=== PATIENT | female | born 1975 | race Caucasian/White ===

== ENCOUNTER 2017-12-08 11:13 | Observation (INO) | payer OTHER, MEDICAID ==
[~2017-12-08 11:13] MED LIST: CLINDAMYCIN 600 MG/D5W (PMX) 50 ML IVPB; LIDOCAINE 100 MG SYRINGE; METOCLOPRAMIDE 10 MG INJ; ONDANSETRON 4 MG INJ; SOD CHLORIDE 0.9% 1,000 ML IV
[2017-12-08 13:04] LABS: INR 1.29; PARTIAL THROMBOPLASTIN TIME 27.7 Sec (25.0-35.0); PROTIME 16.3 Sec (11.9-14.9); PT RATIO 1.3
[2017-12-08] MEDS ORDERED: BUPIVACAINE 0.25% (MPF) 30 ML INJ (13:11)
[2017-12-08] MEDS ORDERED: FENTAnyl 50 MCG/ML VIAL ×2 (13:23→13:42)
[2017-12-08] MEDS ORDERED: MIDAZOLAM 1 MG/ML 2 ML INJ ×2 (13:24→13:47)
[2017-12-08] MEDS ORDERED: PROPOFOL 20 ML (13:28)
[2017-12-08] MEDS ORDERED: SUCCINYLCHOLINE CHLORIDE 100 MG/5 ML SYG IV (13:28)
[2017-12-08] MEDS ORDERED: NEOSTIGMINE 3 MG/3 ML SYRINGE (13:28)
[2017-12-08] MEDS ORDERED: ROCURONIUM 50 MG INJ (13:28)
[2017-12-08] MEDS ORDERED: GLYCOPYRROLATE 0.4 MG INJ (13:28)
[2017-12-08] MEDS ORDERED: CLINDAMYCIN 600 MG/D5W (PMX) 50 ML IVPB (13:43)
[2017-12-08] MEDS ORDERED: ACETAMINOPHEN 1000MG/100ML IV 100 ML (13:45)
[2017-12-08] MEDS: POLYMYXIN/BACITRACIN 1L IRRIG IRR (14:12)
[2017-12-08] MEDS: BUPIVACAINE 0.25% (MPF) 30 ML INJ INJ (14:13)
[2017-12-08] MEDS ORDERED: PHENYLephrine (100 MCG/ML) 5ML SYG (14:19)
[2017-12-08] MEDS ORDERED: HYDROCORTISONE 100 MG INJ (14:20)
[2017-12-08] MEDS ORDERED: morphine 2 MG INJ IV (15:00)
[2017-12-08] MEDS: MEPERIDINE 25 MG INJ IV (15:15)
[2017-12-08] MEDS: HYDROmorphONE (0.2 MG/ML) 10ML SYG IV ×5 (15:15→15:58)
[2017-12-08] MEDS: ONDANSETRON 4 MG INJ IV (15:16)
[2017-12-08] MEDS ORDERED: LABETALOL HCL 20MG INJ IV (15:30)
[2017-12-08] MEDS ORDERED: FENTAnyl 50 MCG/ML VIAL IV ×2 (15:30)
[2017-12-08] MEDS ORDERED: hydrALAzine 20 MG INJ IV (15:30)
[2017-12-08] MEDS ORDERED: HYDROmorphONE (0.2 MG/ML) 10ML SYG IV (15:30)
[2017-12-08] MEDS ORDERED: LEVALBUTEROL (NEB) 0.63 MG/3 ML AMP HHN (15:30)
[2017-12-08] MEDS ORDERED: METOCLOPRAMIDE 10 MG INJ IV ×2 (15:30→17:30)
[2017-12-08] MEDS ORDERED: EPHEDrine SULFATE 50 MG/5 ML SYG IV (15:30)
[2017-12-08] MEDS ORDERED: DIPHENHYDRAMINE 50 MG INJ IV (15:30)
[2017-12-08 16:22] LABS: ADD MAN DIFF? NO
[2017-12-08 16:26] LABS: WHITE BLOOD COUNT 11.9 10^3/ul (4.8-10.8)
[2017-12-08 16:26] LABS: BASOPHIL # 0.1 10^3/ul (0.0-0.1); BASOPHILS % 0.4 % (0.0-2.0); EOSINOPHILS # 0.1 10^3/ul (0.0-0.5); EOSINOPHILS % 0.7 % (0.0-7.0); HEMATOCRIT 32.2 % (37.0-47.0); HEMOGLOBIN 10.2 g/dl (12.0-16.0); LYMPHOCYTES # 0.8 10^3/ul (0.8-2.9); LYMPHOCYTES % 6.6 % (15.0-51.0); MEAN CORPUSCULAR HEMOGLOBIN 27.9 pg (29.0-33.0); MEAN CORPUSCULAR HGB CONC 31.7 g/dl (32.0-37.0); MEAN CORPUSCULAR VOLUME 88.2 fl (82.0-101.0); MEAN PLATELET VOLUME 10.7 fl (7.4-10.4); MONOCYTE # 0.4 10^3/ul (0.3-0.9); MONOCYTES % 3.4 % (0.0-11.0); NEUTROPHIL # 10.5 10^3/ul (1.6-7.5); NEUTROPHILS % 88.4 % (39.0-77.0); PLATELET COUNT 253 10^3/UL (140-415); RED BLOOD COUNT 3.65 10^6/ul (4.20-5.40); RED CELL DISTRIBUTION WIDTH 15.3 % (11.5-14.5)
[2017-12-08 17:00] LABS: ALANINE AMINOTRANSFERASE 27 IU/L (13-69); ALBUMIN 2.9 g/dl (3.3-4.9); ALBUMIN/GLOBULIN RATIO 1.11; ALKALINE PHOSPHATASE 58 IU/L (42-121); ANION GAP 12 (8-16); ASPARTATE AMINO TRANSFERASE 17 IU/L (15-46); BILIRUBIN,INDIRECT 0.6 mg/dl (0-1.1); BILIRUBIN,TOTAL 0.6 mg/dl (0.2-1.3); CARBON DIOXIDE 23 mmol/L (21-31); CHLORIDE 108 mmol/L (97-110); GLUCOSE 148 mg/dl (70-220); TOTAL PROTEIN 5.5 g/dl (6.1-8.1)
[2017-12-08 17:16] LABS: SODIUM 140 mmol/L (135-144)
[2017-12-08 17:22] LABS: BLOOD UREA NITROGEN 24 mg/dl (7-20); CALCIUM 7.3 mg/dl (8.4-10.2); CREATININE 1.14 mg/dl (0.44-1.00)
[2017-12-08] MEDS ORDERED: ONDANSETRON 4 MG INJ IV (17:30)
[2017-12-08] MEDS: CLINDAMYCIN 600 MG/D5W (PMX) 50 ML IVPB (18:03)
[2017-12-08] MEDS: POTASSIUM CHLORIDE 40 MEQ in DEXTROSE 5% 250 ML IVPB (19:24)
[2017-12-08] MEDS: FAMOTIDINE 20 MG INJ IV (21:46)
[2017-12-08] MEDS: LACTATED RINGER'S 1,000 ML IV (21:50)
[2017-12-08] MEDS: HYDROCODONE/APAP (5/325) TAB PO (21:51)
[2017-12-09] MEDS: CLINDAMYCIN 600 MG/D5W (PMX) 50 ML IVPB ×3 (00:09→11:57)
[2017-12-09] MEDS: LACTATED RINGER'S 1,000 ML IV ×2 (00:51→10:51)
[2017-12-09] MEDS: HYDROmorphONE 0.5 MG/0.5 ML SYG IV (02:27)
[2017-12-09] MEDS: LEVOTHYROXINE 50 MCG TAB PO (06:07)
[2017-12-09 09:10] LABS: ADD MAN DIFF? NO
[2017-12-09 09:25] LABS: WHITE BLOOD COUNT 7.6 10^3/ul (4.8-10.8)
[2017-12-09 09:25] LABS: BASOPHILS % 0.4 % (0.0-2.0); EOSINOPHILS # 0.2 10^3/ul (0.0-0.5); EOSINOPHILS % 2.2 % (0.0-7.0); HEMATOCRIT 29.4 % (37.0-47.0); HEMOGLOBIN 9.2 g/dl (12.0-16.0); LYMPHOCYTES # 1.6 10^3/ul (0.8-2.9); LYMPHOCYTES % 20.6 % (15.0-51.0); MEAN CORPUSCULAR HGB CONC 31.3 g/dl (32.0-37.0); MEAN CORPUSCULAR VOLUME 89.6 fl (82.0-101.0); MEAN PLATELET VOLUME 11.2 fl (7.4-10.4); MONOCYTE # 0.7 10^3/ul (0.3-0.9); MONOCYTES % 9.1 % (0.0-11.0); NEUTROPHIL # 5.1 10^3/ul (1.6-7.5); NEUTROPHILS % 67.3 % (39.0-77.0); PLATELET COUNT 237 10^3/UL (140-415); RED BLOOD COUNT 3.28 10^6/ul (4.20-5.40); RED CELL DISTRIBUTION WIDTH 15.9 % (11.5-14.5)
[2017-12-09] MEDS: MYCOPHENOLATE 250 MG CAP PO (09:32)
[2017-12-09] MEDS: FAMOTIDINE 20 MG INJ IV (09:32)
[2017-12-09 09:36] LABS: ALANINE AMINOTRANSFERASE 30 IU/L (13-69); ALBUMIN 2.9 g/dl (3.3-4.9); ALBUMIN/GLOBULIN RATIO 1.07; ALKALINE PHOSPHATASE 55 IU/L (42-121); ANION GAP 10 (8-16); ASPARTATE AMINO TRANSFERASE 16 IU/L (15-46); BILIRUBIN,INDIRECT 0.7 mg/dl (0-1.1); BILIRUBIN,TOTAL 0.7 mg/dl (0.2-1.3); BLOOD UREA NITROGEN 20 mg/dl (7-20); CARBON DIOXIDE 27 mmol/L (21-31); CHLORIDE 105 mmol/L (97-110); CREATININE 1.09 mg/dl (0.44-1.00); GLUCOSE 101 mg/dl (70-220); POTASSIUM 3.8 mmol/L (3.5-5.1); SODIUM 138 mmol/L (135-144); TOTAL PROTEIN 5.6 g/dl (6.1-8.1)
[2017-12-09] MEDS: ENOXAPARIN 30 MG/0.3 ML SYG SC (09:39)
[2017-12-09] MEDS: HYDROCODONE/APAP (5/325) TAB PO (11:45)
[2017-12-09] MEDS: predniSONE 10 MG TAB PO (11:56)
== END 2017-12-09 13:41 | disposition home or self-care (01) ==
LOC: SDS 11:13 → REC 14:54 → MS4 22:11
DX: K43.6 Other and unspecified ventral hernia with obstruction, without gangrene (principal); I12.9 Hypertensive chronic kidney disease with stage 1 through stage 4 chronic kidney disease, or unspecified chronic kidney disease; N18.9 Chronic kidney disease, unspecified; E03.9 Hypothyroidism, unspecified; M32.14 Glomerular disease in systemic lupus erythematosus; Z79.01 Long term (current) use of anticoagulants
CPT/HCPCS: 49561; 80053; 85025; 85610; 85730; 88302; 99217; G0378

== ENCOUNTER 2019-05-12 21:17 | Emergency (ER) | payer OTHER ==
[2019-05-12] MEDS: DIPHTH/TET/ACEL PERTUSS (ADULT) 0.5 ML VIAL IM* (22:55)
== END 2019-05-13 00:15 | disposition home or self-care (01) ==
LOC: FTE 05-13 00:15
DX: S81.812A Laceration without foreign body, left lower leg, initial encounter (principal); W26.8XXA Contact with other sharp object(s), not elsewhere classified, initial encounter; Y92.9 Unspecified place or not applicable; Z23 Encounter for immunization
CPT/HCPCS: 12001; 73562; 90471; 90715; 99283-25